=== PATIENT | female | born 1940 | race Caucasian/White ===

== ENCOUNTER 2019-04-18 15:54 | Inpatient (IN) | payer OTHER, MEDICAID ==
[2019-04-18] MEDS ORDERED: NACL 0.9% 3 ML SYG IV (17:00)
[2019-04-18] MEDS ORDERED: ZOLPIDEM 5 MG TAB PO (17:00)
[2019-04-18] MEDS: hydrALAzine 20 MG INJ IV (17:00)
[2019-04-18] MEDS: HYDROmorphONE 0.5 MG/0.5 ML SYG IV ×2 (17:00→22:13)
[2019-04-18] MEDS: SOD CHLORIDE 0.9% 1,000 ML IV (17:19)
[2019-04-18] MEDS: ONDANSETRON 4 MG INJ IV (17:19)
[2019-04-18] MEDS: ACETAMINOPHEN 325 MG TAB PO (17:20)
[2019-04-18] MEDS: CIPROFLOXACIN 400MG/D5W 200 ML IVPB (22:11)
[2019-04-18] MEDS: FAMOTIDINE 20 MG TAB PO (22:12)
[2019-04-18] MEDS: HEPARIN 5,000 UNIT/1 ML VIAL SC (22:27)
[2019-04-18 22:57] LABS: TROPONIN-I < 0.012 ng/ml (0.000-0.120)
[2019-04-18] MEDS: metroNIDAZOLE 500 MG/NS (PMX) 100 ML IVPB (23:16)
[2019-04-19 05:42] LABS: ADD MAN DIFF? NO; HAAIG REFLEX REFLEX FILED
[2019-04-19 05:52] LABS: BASOPHILS % 0.4 % (0.0-2.0); EOSINOPHILS # 0.1 10^3/ul (0.0-0.5); EOSINOPHILS % 1.6 % (0.0-7.0); HEMATOCRIT 45.3 % (37.0-47.0); HEMOGLOBIN 13.7 g/dl (12.0-16.0); LYMPHOCYTES # 0.9 10^3/ul (0.8-2.9); LYMPHOCYTES % 16.8 % (15.0-51.0); MEAN CORPUSCULAR HEMOGLOBIN 27.1 pg (29.0-33.0); MEAN CORPUSCULAR HGB CONC 30.2 g/dl (32.0-37.0); MEAN CORPUSCULAR VOLUME 89.7 fl (82.0-101.0); MEAN PLATELET VOLUME 9.8 fl (7.4-10.4); MONOCYTE # 0.2 10^3/ul (0.3-0.9); MONOCYTES % 4.7 % (0.0-11.0); NEUTROPHIL # 3.9 10^3/ul (1.6-7.5); NEUTROPHILS % 76.1 % (39.0-77.0); PLATELET COUNT 179 10^3/UL (140-415); RED BLOOD COUNT 5.05 10^6/ul (4.20-5.40); RED CELL DISTRIBUTION WIDTH 13.1 % (11.5-14.5)
[2019-04-19 05:52] LABS: WHITE BLOOD COUNT 5.1 10^3/ul (4.8-10.8)
[2019-04-19 06:04] LABS: HEMOGLOBIN A1C 6.6 % (0-5.9)
[2019-04-19 06:15] LABS: ALBUMIN 3.2 g/dl (3.3-4.9); ALBUMIN/GLOBULIN RATIO 1.23; ALKALINE PHOSPHATASE 166 IU/L (42-121); ANION GAP 6 (5-13); BLOOD UREA NITROGEN 14 mg/dl (7-20); CALCIUM 8.6 mg/dl (8.4-10.2); CARBON DIOXIDE 27 mmol/L (21-31); CHLORIDE 105 mmol/L (97-110); CREATININE 0.63 mg/dl (0.44-1.00); GLUCOSE 162 mg/dl (70-220); MAGNESIUM 2.1 mg/dl (1.7-2.5); PHOSPHORUS 3.7 mg/dl (2.5-4.9); POTASSIUM 3.8 mmol/L (3.5-5.1); SODIUM 138 mmol/L (135-144); TOTAL PROTEIN 5.8 g/dl (6.1-8.1)
[2019-04-19 06:24] LABS: ASPARTATE AMINO TRANSFERASE 827 IU/L (15-46)
[2019-04-19 06:28] LABS: TROPONIN-I < 0.012 ng/ml (0.000-0.120)
[2019-04-19 06:29] LABS: ALANINE AMINOTRANSFERASE 1224 IU/L (13-69)
[2019-04-19] MEDS: SOD CHLORIDE 0.9% 1,000 ML IV ×2 (06:37→12:44)
[2019-04-19] MEDS: metroNIDAZOLE 500 MG/NS (PMX) 100 ML IVPB ×3 (06:37→23:03)
[2019-04-19 08:40] LABS: HEPATITIS B SURFACE ANTIGEN NEGATIVE (NEGATIVE)
[2019-04-19] MEDS: CIPROFLOXACIN 400MG/D5W 200 ML IVPB ×2 (08:54→21:23)
[2019-04-19 08:58] LABS: HEPATITIS B CORE ANTIBODY NEGATIVE (NEGATIVE); HEPATITIS C VIRAL ANTIBODY NEGATIVE (NEGATIVE)
[2019-04-19] MEDS: HEPARIN 5,000 UNIT/1 ML VIAL SC ×2 (08:58→21:33)
[2019-04-19 11:35] LABS: LIPASE 50 U/L (23-300)
[2019-04-19] MEDS: hydrALAzine 20 MG INJ IV (13:27)
[2019-04-19] MEDS ORDERED: HARD FAT/PHENYLEPHRINE SUPP PR (14:00)
[2019-04-19] MEDS: HYDROmorphONE 0.5 MG/0.5 ML SYG IV ×2 (15:16→22:20)
[2019-04-19] MEDS: FAMOTIDINE 20 MG TAB PO (21:24)
[2019-04-20] MEDS: SOD CHLORIDE 0.9% 1,000 ML IV ×2 (01:42→08:44)
[2019-04-20] MEDS: metroNIDAZOLE 500 MG/NS (PMX) 100 ML IVPB (05:56)
[2019-04-20 06:28] LABS: ALANINE AMINOTRANSFERASE 624 IU/L (13-69); ALBUMIN 2.7 g/dl (3.3-4.9); ALKALINE PHOSPHATASE 112 IU/L (42-121); ASPARTATE AMINO TRANSFERASE 243 IU/L (15-46); TOTAL PROTEIN 5.1 g/dl (6.1-8.1)
[2019-04-20] MEDS: CIPROFLOXACIN 400MG/D5W 200 ML IVPB (09:20)
[2019-04-20] MEDS: HEPARIN 5,000 UNIT/1 ML VIAL SC ×2 (09:25→21:00)
[2019-04-20] MEDS: HYDROmorphONE 0.5 MG/0.5 ML SYG IV ×2 (10:33→22:12)
[2019-04-20] MEDS: FAMOTIDINE 20 MG TAB PO (20:30)
[2019-04-20] MEDS: hydrALAzine 20 MG INJ IV (20:33)
[2019-04-20] MEDS: SKIN RESP FACT/SHARK/PH MERCU SUPP PR (20:46)
[2019-04-21] MEDS: HEPARIN 5,000 UNIT/1 ML VIAL SC (08:06)
[2019-04-21] MEDS: HYDROmorphONE 0.5 MG/0.5 ML SYG IV (09:00)
[2019-04-21] MEDS: hydrALAzine 20 MG INJ IV ×2 (09:46→17:21)
[2019-04-21] MEDS ORDERED: BUPIVACAINE 0.25%/EPI (SDV) 10 ML INJ (15:09)
[2019-04-21] MEDS ORDERED: LIDOCAINE 1% (MPF) 30 ML INJ (15:09)
[2019-04-21] MEDS ORDERED: ACETAMINOPHEN 325 MG TAB PO (16:00)
[2019-04-21] MEDS ORDERED: HYDROmorphONE 0.5 MG/0.5 ML SYG IV (16:00)
[2019-04-21] MEDS ORDERED: ONDANSETRON 4 MG INJ IV ×2 (16:00→17:30)
[2019-04-21] MEDS ORDERED: EPHEDrine 25 MG/5 ML SYG (16:00)
[2019-04-21] MEDS ORDERED: LIDOCAINE 2% (SDV) 5 ML INJ (16:03)
[2019-04-21] MEDS ORDERED: PROPOFOL 20 ML (16:03)
[2019-04-21] MEDS ORDERED: FENTAnyl 50 MCG/ML VIAL (16:04)
[2019-04-21] MEDS ORDERED: MIDAZOLAM 1 MG/ML 2 ML INJ (16:16)
[2019-04-21] MEDS ORDERED: ONDANSETRON 4 MG INJ ×2 (16:29→16:34)
[2019-04-21] MEDS ORDERED: ROCURONIUM 50 MG INJ (16:29)
[2019-04-21] MEDS ORDERED: SUCCINYLCHOLINE CHLORIDE 100 MG/5 ML SYG IV (16:29)
[2019-04-21] MEDS ORDERED: FAMOTIDINE 20 MG INJ (16:30)
[2019-04-21] MEDS ORDERED: PHENYLephrine (100 MCG/ML) 10ML SYG (16:31)
[2019-04-21] MEDS ORDERED: ROPIVACAINE 0.5 % 30 ML VIAL (16:36)
[2019-04-21] MEDS ORDERED: SUGAMMADEX SODIUM 200 MG/2 ML VIAL IV (16:47)
[2019-04-21] MEDS: MEPERIDINE 25 MG INJ IV (17:30)
[2019-04-21] MEDS ORDERED: DIPHENHYDRAMINE 50 MG INJ IV (17:30)
[2019-04-21] MEDS ORDERED: FENTAnyl 50 MCG/ML VIAL IV (17:30)
[2019-04-21] MEDS ORDERED: LABETALOL HCL 20MG INJ IV (17:30)
[2019-04-21] MEDS ORDERED: HYDROmorphONE 1 MG/5 ML IV SYRINGE IV (17:30)
[2019-04-21] MEDS ORDERED: PROCHLORPERAZINE 10 MG INJ IV (17:30)
[2019-04-21] MEDS: HYDROmorphONE 1 MG/5 ML IV SYRINGE IV ×2 (17:30→17:51)
[2019-04-21] MEDS: D5-NS + KCL 20 MEQ 1,000 ML IV (19:16)
[2019-04-21] MEDS: FAMOTIDINE 20 MG TAB PO (20:39)
[2019-04-22] MEDS: HYDROCODONE/APAP (5/325) TAB PO ×3 (00:07→17:12)
[2019-04-22 05:07] LABS: ADD MAN DIFF? NO
[2019-04-22 05:10] LABS: BASOPHILS % 0.5 % (0.0-2.0); EOSINOPHILS # 0.2 10^3/ul (0.0-0.5); EOSINOPHILS % 2.5 % (0.0-7.0); HEMATOCRIT 40.6 % (37.0-47.0); HEMOGLOBIN 12.5 g/dl (12.0-16.0); LYMPHOCYTES # 2.2 10^3/ul (0.8-2.9); LYMPHOCYTES % 29.2 % (15.0-51.0); MEAN CORPUSCULAR HEMOGLOBIN 27.4 pg (29.0-33.0); MEAN CORPUSCULAR HGB CONC 30.8 g/dl (32.0-37.0); MEAN CORPUSCULAR VOLUME 88.8 fl (82.0-101.0); MEAN PLATELET VOLUME 9.2 fl (7.4-10.4); MONOCYTE # 0.7 10^3/ul (0.3-0.9); MONOCYTES % 9.1 % (0.0-11.0); NEUTROPHIL # 4.4 10^3/ul (1.6-7.5); NEUTROPHILS % 58.4 % (39.0-77.0); PLATELET COUNT 201 10^3/UL (140-415); RED BLOOD COUNT 4.57 10^6/ul (4.20-5.40); RED CELL DISTRIBUTION WIDTH 13.5 % (11.5-14.5)
[2019-04-22 05:10] LABS: WHITE BLOOD COUNT 7.5 10^3/ul (4.8-10.8)
[2019-04-22 05:30] LABS: ALANINE AMINOTRANSFERASE 370 IU/L (13-69); ALBUMIN 2.7 g/dl (3.3-4.9); ALBUMIN/GLOBULIN RATIO 1.08; ALKALINE PHOSPHATASE 114 IU/L (42-121); ANION GAP 3 (5-13); ASPARTATE AMINO TRANSFERASE 108 IU/L (15-46); BLOOD UREA NITROGEN 6 mg/dl (7-20); CALCIUM 8.3 mg/dl (8.4-10.2); CARBON DIOXIDE 29 mmol/L (21-31); CHLORIDE 106 mmol/L (97-110); CREATININE 0.51 mg/dl (0.44-1.00); GLUCOSE 134 mg/dl (70-220); POTASSIUM 3.4 mmol/L (3.5-5.1); SODIUM 138 mmol/L (135-144); TOTAL PROTEIN 5.2 g/dl (6.1-8.1)
[2019-04-22] MEDS: D5-NS + KCL 20 MEQ 1,000 ML IV (06:07)
[2019-04-22] MEDS: DOCUSATE SODIUM 100 MG CAP PO (06:08)
[2019-04-22] MEDS: MAGNESIUM HYDROXIDE 30ML CUP PO (06:08)
[2019-04-22] MEDS: ENOXAPARIN 40 MG/0.4 ML SYG SC (07:24)
[2019-04-22] MEDS: hydrALAzine 20 MG INJ IV (08:22)
[2019-04-22] MEDS: LORAZEPAM 1 MG TAB PO (17:12)
== END 2019-04-22 18:45 | DRG 419 ==
LOC: MS1 15:54
PROVIDERS: Internal Medicine
PROC: 0FT44ZZ Resection of Gallbladder, Percutaneous Endoscopic Approach (ICD-10-PCS; principal; 2019-04-21 15:30)
DX: K80.64 Calculus of gallbladder and bile duct with chronic cholecystitis without obstruction (principal); E78.5 Hyperlipidemia, unspecified; I73.9 Peripheral vascular disease, unspecified; I25.10 Atherosclerotic heart disease of native coronary artery without angina pectoris; I10 Essential (primary) hypertension; J45.909 Unspecified asthma, uncomplicated; I16.0 Hypertensive urgency; Z95.1 Presence of aortocoronary bypass graft
CPT/HCPCS: 74181; 78226; 80053; 80076; 83036; 83690; 83735; 84100; 84484; 85025; 86704; 86709; 86803; 87340; 88304; 93306; 93922

== ENCOUNTER 2019-05-03 19:19 | Inpatient (IN) | payer OTHER, MEDICAID ==
[2019-05-03] MEDS: ASPIRIN 325 MG TAB PO (19:57)
[2019-05-03] MEDS: NITROGLYCERIN 2% 1 GM OINT PKT TD (19:57)
[2019-05-03 20:02] LABS: ADD MAN DIFF? NO
[2019-05-03 20:09] LABS: BASOPHIL # 0.1 10^3/ul (0.0-0.1); BASOPHILS % 0.7 % (0.0-2.0); EOSINOPHILS # 0.2 10^3/ul (0.0-0.5); EOSINOPHILS % 2.5 % (0.0-7.0); HEMATOCRIT 45.3 % (37.0-47.0); HEMOGLOBIN 13.9 g/dl (12.0-16.0); LYMPHOCYTES # 2.4 10^3/ul (0.8-2.9); LYMPHOCYTES % 28.2 % (15.0-51.0); MEAN CORPUSCULAR HEMOGLOBIN 27.5 pg (29.0-33.0); MEAN CORPUSCULAR HGB CONC 30.7 g/dl (32.0-37.0); MEAN CORPUSCULAR VOLUME 89.5 fl (82.0-101.0); MEAN PLATELET VOLUME 9.2 fl (7.4-10.4); MONOCYTE # 0.5 10^3/ul (0.3-0.9); MONOCYTES % 5.4 % (0.0-11.0); NEUTROPHIL # 5.4 10^3/ul (1.6-7.5); NEUTROPHILS % 62.8 % (39.0-77.0); PLATELET COUNT 330 10^3/UL (140-415); RED BLOOD COUNT 5.06 10^6/ul (4.20-5.40); RED CELL DISTRIBUTION WIDTH 13.1 % (11.5-14.5)
[2019-05-03 20:09] LABS: WHITE BLOOD COUNT 8.5 10^3/ul (4.8-10.8)
[2019-05-03 20:20] LABS: ALANINE AMINOTRANSFERASE 201 IU/L (13-69); ALBUMIN 4.4 g/dl (3.3-4.9); ALBUMIN/GLOBULIN RATIO 1.46; ALKALINE PHOSPHATASE 199 IU/L (42-121); ANION GAP 9 (5-13); ASPARTATE AMINO TRANSFERASE 315 IU/L (15-46); BILIRUBIN,INDIRECT 1.1 mg/dl (0-1.1); BILIRUBIN,TOTAL 1.1 mg/dl (0.2-1.3); BLOOD UREA NITROGEN 30 mg/dl (7-20); CALCIUM 9.8 mg/dl (8.4-10.2); CARBON DIOXIDE 26 mmol/L (21-31); CHLORIDE 100 mmol/L (97-110); CREATININE 0.73 mg/dl (0.44-1.00); GLUCOSE 147 mg/dl (70-220); LIPASE 118 U/L (23-300); POTASSIUM 4.5 mmol/L (3.5-5.1); SODIUM 135 mmol/L (135-144); TOTAL PROTEIN 7.4 g/dl (6.1-8.1)
[2019-05-03 20:31] LABS: TROPONIN-I < 0.012 ng/ml (0.000-0.120)
[2019-05-03] MEDS ORDERED: ONDANSETRON 4 MG INJ IV ×2 (21:30→22:00)
[2019-05-03] MEDS ORDERED: ACETAMINOPHEN 325 MG TAB PO (21:30)
[2019-05-03] MEDS: SOD CHLORIDE 0.9% 100 ML (21:55)
[2019-05-03] MEDS: IOHEXOL 300MG/ML 150 ML BTL (21:55)
[2019-05-03] MEDS: LORAZEPAM 2 MG INJ IV (21:59)
[2019-05-03] MEDS ORDERED: NACL 0.9% 3 ML SYG IV (22:00)
[2019-05-03] MEDS: FAMOTIDINE 20 MG TAB PO (22:00)
[2019-05-03 22:42] LABS: CREATINE KINASE < 20 IU/L (23-200)
[2019-05-03 22:48] LABS: CK-MB 0.33 ng/ml (0.0-2.4); TROPONIN-I < 0.012 ng/ml (0.000-0.120)
[2019-05-04] MEDS: NS + KCL 20 MEQ 1,000 ML IV ×2 (01:50→15:33)
[2019-05-04] MEDS: HYDROCODONE/APAP (5/325) TAB PO (02:05)
[2019-05-04 03:49] LABS: ADD MAN DIFF? NO
[2019-05-04 04:04] LABS: BASOPHIL # 0.1 10^3/ul (0.0-0.1); EOSINOPHILS # 0.2 10^3/ul (0.0-0.5); EOSINOPHILS % 2.9 % (0.0-7.0); HEMATOCRIT 44.1 % (37.0-47.0); HEMOGLOBIN 13.5 g/dl (12.0-16.0); LYMPHOCYTES # 1.5 10^3/ul (0.8-2.9); LYMPHOCYTES % 28.9 % (15.0-51.0); MEAN CORPUSCULAR HEMOGLOBIN 27.4 pg (29.0-33.0); MEAN CORPUSCULAR HGB CONC 30.6 g/dl (32.0-37.0); MEAN CORPUSCULAR VOLUME 89.5 fl (82.0-101.0); MEAN PLATELET VOLUME 9.2 fl (7.4-10.4); MONOCYTE # 0.4 10^3/ul (0.3-0.9); NEUTROPHIL # 3.2 10^3/ul (1.6-7.5); NEUTROPHILS % 59.8 % (39.0-77.0); PLATELET COUNT 253 10^3/UL (140-415); RED BLOOD COUNT 4.93 10^6/ul (4.20-5.40); RED CELL DISTRIBUTION WIDTH 12.8 % (11.5-14.5)
[2019-05-04 04:04] LABS: WHITE BLOOD COUNT 5.3 10^3/ul (4.8-10.8)
[2019-05-04 04:08] LABS: ANION GAP 5 (5-13); BLOOD UREA NITROGEN 26 mg/dl (7-20); CALCIUM 9.2 mg/dl (8.4-10.2); CARBON DIOXIDE 26 mmol/L (21-31); CHLORIDE 105 mmol/L (97-110); CREATINE KINASE < 20 IU/L (23-200); CREATININE 0.61 mg/dl (0.44-1.00); GLUCOSE 136 mg/dl (70-220); POTASSIUM 4.2 mmol/L (3.5-5.1); SODIUM 136 mmol/L (135-144)
[2019-05-04 04:10] LABS: HEMOGLOBIN A1C 6.6 % (0-5.9)
[2019-05-04 04:19] LABS: TROPONIN-I < 0.012 ng/ml (0.000-0.120)
[2019-05-04 05:36] LABS: THYROID STIMULATING HORMONE 0.451 MIU/L (0.465-4.680)
[2019-05-04] MEDS: ASPIRIN 81 MG TAB PO (09:11)
[2019-05-04] MEDS: FAMOTIDINE 20 MG TAB PO ×2 (09:11→21:00)
[2019-05-04] MEDS: ATORVASTATIN 20 MG TAB PO (09:11)
[2019-05-04] MEDS: ENOXAPARIN 40 MG/0.4 ML SYG SC (09:22)
[2019-05-04] MEDS: LORAZEPAM 2 MG INJ IV (19:30)
[2019-05-04] MEDS: hydrALAzine 20 MG INJ IV (20:35)
[2019-05-05] MEDS: LISINOPRIL 20 MG TAB PO ×2 (00:50→08:44)
[2019-05-05] MEDS: HYDROCODONE/APAP (5/325) TAB PO ×2 (04:37→08:44)
[2019-05-05] MEDS: ACETAMINOPHEN 325 MG TAB PO (04:40)
[2019-05-05] MEDS: NS + KCL 20 MEQ 1,000 ML IV ×2 (04:46→12:52)
[2019-05-05 05:52] LABS: ADD MAN DIFF? NO
[2019-05-05 06:00] LABS: WHITE BLOOD COUNT 4.4 10^3/ul (4.8-10.8)
[2019-05-05 06:00] LABS: BASOPHILS % 0.9 % (0.0-2.0); EOSINOPHILS # 0.3 10^3/ul (0.0-0.5); EOSINOPHILS % 7.5 % (0.0-7.0); HEMOGLOBIN 12.5 g/dl (12.0-16.0); LYMPHOCYTES # 1.5 10^3/ul (0.8-2.9); LYMPHOCYTES % 33.8 % (15.0-51.0); MEAN CORPUSCULAR HEMOGLOBIN 27.5 pg (29.0-33.0); MEAN CORPUSCULAR HGB CONC 30.5 g/dl (32.0-37.0); MEAN CORPUSCULAR VOLUME 90.1 fl (82.0-101.0); MEAN PLATELET VOLUME 9.3 fl (7.4-10.4); MONOCYTE # 0.4 10^3/ul (0.3-0.9); MONOCYTES % 8.4 % (0.0-11.0); NEUTROPHIL # 2.1 10^3/ul (1.6-7.5); NEUTROPHILS % 48.9 % (39.0-77.0); PLATELET COUNT 252 10^3/UL (140-415); RED BLOOD COUNT 4.55 10^6/ul (4.20-5.40); RED CELL DISTRIBUTION WIDTH 12.9 % (11.5-14.5)
[2019-05-05 06:11] LABS: ALANINE AMINOTRANSFERASE 719 IU/L (13-69); ALKALINE PHOSPHATASE 186 IU/L (42-121); ASPARTATE AMINO TRANSFERASE 416 IU/L (15-46); BILIRUBIN,INDIRECT 1.5 mg/dl (0-1.1)
[2019-05-05 06:12] LABS: ALBUMIN 2.8 g/dl (3.3-4.9); BILIRUBIN,TOTAL 1.5 mg/dl (0.2-1.3); TOTAL PROTEIN 5.1 g/dl (6.1-8.1)
[2019-05-05 06:14] LABS: ANION GAP 5 (5-13); BLOOD UREA NITROGEN 21 mg/dl (7-20); CALCIUM 8.8 mg/dl (8.4-10.2); CARBON DIOXIDE 23 mmol/L (21-31); CHLORIDE 110 mmol/L (97-110); CREATININE 0.83 mg/dl (0.44-1.00); GLUCOSE 121 mg/dl (70-220); POTASSIUM 4.4 mmol/L (3.5-5.1); SODIUM 138 mmol/L (135-144)
[2019-05-05] MEDS: ASPIRIN 81 MG TAB PO (08:43)
[2019-05-05] MEDS: FAMOTIDINE 20 MG TAB PO ×2 (08:44→21:32)
[2019-05-05] MEDS: ATORVASTATIN 20 MG TAB PO (08:44)
[2019-05-05] MEDS: ENOXAPARIN 40 MG/0.4 ML SYG SC (08:52)
[2019-05-05] MEDS: DOCUSATE SODIUM 100 MG CAP PO (11:56)
[2019-05-05] MEDS: LORAZEPAM 2 MG INJ IV (14:34)
[2019-05-06] MEDS: NS + KCL 20 MEQ 1,000 ML IV (02:47)
[2019-05-06] MEDS: DOCUSATE SODIUM 100 MG CAP PO ×2 (04:53→20:19)
[2019-05-06 06:22] LABS: ALANINE AMINOTRANSFERASE 559 IU/L (13-69); ALBUMIN 3.2 g/dl (3.3-4.9); ALKALINE PHOSPHATASE 193 IU/L (42-121); ASPARTATE AMINO TRANSFERASE 173 IU/L (15-46); BILIRUBIN,INDIRECT 1.3 mg/dl (0-1.1); BILIRUBIN,TOTAL 1.3 mg/dl (0.2-1.3); TOTAL PROTEIN 5.8 g/dl (6.1-8.1)
[2019-05-06] MEDS: LISINOPRIL 20 MG TAB PO (08:09)
[2019-05-06] MEDS: ASPIRIN 81 MG TAB PO (08:09)
[2019-05-06] MEDS: FAMOTIDINE 20 MG TAB PO ×2 (08:09→20:16)
[2019-05-06] MEDS: ATORVASTATIN 20 MG TAB PO (08:10)
[2019-05-06] MEDS: ENOXAPARIN 40 MG/0.4 ML SYG SC (08:12)
[2019-05-06] MEDS: ACETAMINOPHEN 325 MG TAB PO (09:11)
[2019-05-06] MEDS: DEXTROSE 5%-0.45% NACL 1,000 ML IV ×2 (10:11→22:30)
[2019-05-06] MEDS: hydrALAzine 20 MG INJ IV ×2 (10:21→16:20)
[2019-05-06] MEDS: LORAZEPAM 2 MG INJ IV (10:46)
[2019-05-06 12:07] LABS: MITOCHONDRIAL TB NEGATIVE (NEGATIVE); SMOOTH MUSCLE AB SCREEN NEGATIVE (NEGATIVE)
[2019-05-06] MEDS ORDERED: INDOMETHACIN 50 MG SUPP PR (15:00)
[2019-05-06 15:22] LABS: ANA SCREEN NEGATIVE (NEGATIVE)
[2019-05-06] MEDS ORDERED: ROCURONIUM 50 MG INJ (17:00)
[2019-05-06] MEDS ORDERED: LIDOCAINE 2% (SDV) 5 ML INJ (17:00)
[2019-05-06] MEDS ORDERED: PROPOFOL 20 ML (17:00)
[2019-05-06] MEDS ORDERED: ONDANSETRON 4 MG INJ (17:19)
[2019-05-06] MEDS ORDERED: DEXAMETHASONE 4 MG/ML 5 ML INJ (17:19)
[2019-05-06] MEDS ORDERED: SUGAMMADEX SODIUM 200 MG/2 ML VIAL IV (18:11)
[2019-05-06] MEDS ORDERED: hydrALAzine 20 MG INJ IV (18:30)
[2019-05-06] MEDS ORDERED: ONDANSETRON 4 MG INJ IV (18:30)
[2019-05-06] MEDS ORDERED: OXYCODONE/ACETAMINOPHEN (5/325) TAB PO ×2 (18:30)
[2019-05-06] MEDS ORDERED: MIDAZOLAM 1 MG/ML 2 ML INJ IV (18:30)
[2019-05-06] MEDS ORDERED: ALBUTEROL 0.083% (NEB) 2.5 MG/3 ML AMP HHN (18:30)
[2019-05-06] MEDS ORDERED: FENTAnyl 50 MCG/ML VIAL IV (18:30)
[2019-05-06] MEDS ORDERED: MEPERIDINE 25 MG INJ IV (18:30)
[2019-05-06] MEDS ORDERED: METOCLOPRAMIDE 10 MG INJ IV (18:30)
[2019-05-06] MEDS ORDERED: DIPHENHYDRAMINE 50 MG INJ IV (18:30)
[2019-05-06] MEDS ORDERED: EPHEDrine 25 MG/5 ML SYG IV (18:30)
[2019-05-06] MEDS ORDERED: LABETALOL HCL 20MG INJ IV (18:30)
[2019-05-06] MEDS: FENTAnyl 50 MCG/ML VIAL IV (18:49)
[2019-05-06] MEDS: HYDROCODONE/APAP (5/325) TAB PO (22:50)
[2019-05-07] MEDS: ASPIRIN 81 MG TAB PO (08:48)
[2019-05-07] MEDS: FAMOTIDINE 20 MG TAB PO (08:48)
[2019-05-07] MEDS: ATORVASTATIN 20 MG TAB PO (08:48)
[2019-05-07] MEDS: LISINOPRIL 20 MG TAB PO (08:59)
[2019-05-07] MEDS: ENOXAPARIN 40 MG/0.4 ML SYG SC (09:12)
[2019-05-07 11:27] LABS: ALANINE AMINOTRANSFERASE 390 IU/L (13-69); ALBUMIN 3.8 g/dl (3.3-4.9); ALKALINE PHOSPHATASE 182 IU/L (42-121); ASPARTATE AMINO TRANSFERASE 71 IU/L (15-46); TOTAL PROTEIN 6.9 g/dl (6.1-8.1)
[2019-05-07] MEDS: POLYETHYLENE GLYCOL 17 GM PACKET PO (16:34)
== END 2019-05-07 20:41 | disposition home health service (06) | DRG 446 ==
LOC: E/R 19:19 → TEL 21:31
PROC: 0FC98ZZ Extirpation of Matter from Common Bile Duct, Via Natural or Artificial Opening Endoscopic (ICD-10-PCS; principal; 2019-05-06 17:00)
PROC: BF10YZZ Fluoroscopy of Bile Ducts using Other Contrast (ICD-10-PCS; 2019-05-06 17:00)
DX: K80.50 Calculus of bile duct without cholangitis or cholecystitis without obstruction (principal); E11.9 Type 2 diabetes mellitus without complications; F02.80 Dementia in other diseases classified elsewhere, unspecified severity, without behavioral disturbance, psychotic disturbance, mood disturbance, and anxiety; G30.9 Alzheimer's disease, unspecified; E80.6 Other disorders of bilirubin metabolism; I25.10 Atherosclerotic heart disease of native coronary artery without angina pectoris; I10 Essential (primary) hypertension; E78.5 Hyperlipidemia, unspecified; F41.9 Anxiety disorder, unspecified; J45.909 Unspecified asthma, uncomplicated; Z79.82 Long term (current) use of aspirin; Z95.1 Presence of aortocoronary bypass graft; Z90.49 Acquired absence of other specified parts of digestive tract
CPT/HCPCS: 36415; 71045; 74177; 74181; 74330; 80048; 80053; 80076; 82550; 82553; 83036; 83690; 84443; 84484; 85025; 86038; 86255; 93005; 97161; 99285-25